=== PATIENT | male | born 1950 | race Caucasian/White ===

== ENCOUNTER 2018-06-25 15:18 | Observation (INO) ==
[2018-06-25] MEDS ORDERED: Sod Chloride 0.9% Inj 1,000 ML IV.SIG ONE (16:07)
--- NOTE | 2018-06-25 16:34 | XR ---
EXAM DATE: 06/25/2018 4:31 PM EDT AGE/SEX: 67 years / Male INDICATIONS: . Chest pain. Patient states dizziness with heart palpitations. CLINICAL DATA: This is the patient's initial encounter. Patient reports that signs and symptoms have been present for 3 days and indicates a pain score of 2/10. MEDICAL/SURGICAL HISTORY: None. None. COMPARISON: [facility], XR CHEST PA AND LAT, 02/23/2016. . FINDINGS: PA and lateral views of the chest demonstrate the lungs to be symmetrically aerated without evidence of mass, infiltrate or effusion. The cardiomediastinal contours are unremarkable. Osseous structures are intact. CONCLUSION: Negative for an acute process Electronically signed by: Jose E Roman MD 06/25/2018 4:32 PM EDT
[2018-06-25 17:28] LABS: Anion Gap 9 meq/L (5-15); Blood Urea Nitrogen 17 mg/dL (7-18); Calcium 8.5 mg/dL (8.5-10.1); Carbon Dioxide 28.2 meq/L (21.0-32.0); Chloride 104 meq/L (98-107); Glomerular Filtration Rate 64 mL/min (>89); Glucose,Random 81 mg/dL (74-106); Potassium 3.7 meq/L (3.5-5.1); Sodium 141 meq/L (136-145)
[2018-06-25 17:35] LABS: Baso % (Auto) 0.6 % (0.0-2.0); Eos # (Auto) 0.1 th/mm3 (0.0-0.4); Eos % (Auto) 1.3 % (0.0-4.0); Hemoglobin 13.7 gm/dL (13.0-17.0); Lymph # (Auto) 1.1 th/mm3 (1.0-4.8); Lymph % (Auto) 17.2 % (9.0-44.0); Mean Corpuscular HGB Conc 34.2 % (32.0-36.0); Mean Corpuscular Hemoglobin 30.2 pg (27.0-34.0); Mean Corpuscular Volume 88.4 fL (80.0-100.0); Mean Platelet Volume 7.3 fL (7.0-11.0); Mono # (Auto) 0.7 th/mm3 (0.0-0.9); Mono % (Auto) 11.4 % (0.0-8.0); Neut # (Auto) 4.4 th/mm3 (1.8-7.7); Neut % (Auto) 69.5 % (16.0-70.0); Platelet Count 285 th/mm3 (150-450); Red Blood Count 4.53 mil/mm3 (4.50-5.90); Red Cell Distribution Width 13.7 % (11.6-17.2); White Blood Count 6.4 th/mm3 (4.0-11.0)
--- NOTE | 2018-06-25 17:43 | ED ---
HPI General Chief Complaint: Dizziness Stated Complaint: Dizziness/light headed/heart skipping beats Time Seen by Provider: 06/25/18 15:55 Source: patient Mode of arrival: ambulatory Limitations: no limitations History of Present Illness HPI Narrative: Patient is a 67-year-old male, past medical history significant for hypertension, who presents with complaint of chest pain that is consistent of a warm sensation across most of his chest associated with lightheadedness particularly when standing. This does not occur when he is lying down. No shortness of breath, nausea, vomiting. He states that often wondered occurs he takes his pulse and notes himself to be missing several beats. No cough, congestion, fever, chills. complaint: lightheadedness Onset (ago): minute(s) Timing: sudden onset Description: lightheadedness History of similar episodes: Yes History of trauma: No Severity: moderate Exacerbating factors: other Related Data Allergies Allergy/AdvReac Type Severity Reaction Status Date / Time No Known Allergies Allergy Unverified 06/25/18 16:07 Review of Systems ROS: all other systems reviewed are negative [facility] Social History Social History Substance History: Active Abuse Second Hand Smoke Exposure: Yes Smoking Status: Current every day smoker Tobacco Type: Cigarettes How Often Do You Have a Drink Containing Alcohol: 2 to 4 times a month Recent Travel in [facility] within the Last 8 Weeks: Yes Recent Out of Country Travel within the Last 8 Weeks: No Exam Narrative Exam Narrative: GENERAL: Well-appearing male in no acute distress SKIN: Focused skin assessment warm/dry. No rashes. HEAD: Atraumatic. Normocephalic. EYES: Pupils equal and round. No scleral icterus. No injection or drainage. ENT: No nasal bleeding or discharge. Mucous membranes pink and moist. NECK: Trachea midline. No JVD. CARDIOVASCULAR: Regular rate and rhythm. No murmur appreciated. Intact and equal peripheral pulses. RESPIRATORY: No accessory muscle use. Clear to auscultation. Breath sounds equal bilaterally. GASTROINTESTINAL: Abdomen soft, non-tender, nondistended. Hepatic and splenic margins not palpable. MUSCULOSKELETAL: No obvious deformities. No clubbing. No cyanosis. No edema. NEUROLOGICAL: Awake and alert. No obvious cranial nerve deficits. Motor grossly within normal limits. Normal speech. PSYCHIATRIC: Appropriate mood and affect; insight and judgment normal. Course Initial Documented Vital Signs Temperature 97.3 F L 06/25/18 15:21 Pulse Rate 73 06/25/18 15:21 Respiratory Rate 17 06/25/18 15:21 Blood Pressure 142/65 H 06/25/18 15:21 Pulse Oximetry 97 06/25/18 15:21 Last Documented Vital Signs Temperature 97.3 F L 06/25/18 15:21 Pulse Rate 62 06/25/18 17:44 Respiratory Rate 18 06/25/18 17:44 Blood Pressure 145/71 H 06/25/18 17:44 Pulse Oximetry 98 06/25/18 17:44 Medical Decision Making MDM Narrative Medical decision making narrative: Patient is a 67-year-old male who presents with complaint of intermittent chest pain with dizziness and palpitations. EKG shows normal sinus rhythm without ischemic changes. Chest x-ray is unremarkable. Labs including troponin and TSH unremarkable. He has been placed in the chest pain center to remain on a monitor, and have serial EKGs with troponins in addition to a likely stress test. Patient was relieved upon hearing this and agreed. Medical Screen Exam Complete: Yes Emergency Medical Condition: Yes Differential Diagnosis Differential Diagnosis: Differential diagnosis includes but is not limited to acute coronary syndrome, electrolyte abnormality, symptomatic anemia, orthostatic hypotension. Medical Records Medical records reviewed: Yes I reviewed the patient's medical records. Lab Data Lab results reviewed: Yes I reviewed the patient's lab results. Lab results narrative: Unremarkable. Result diagrams: 06/25/18 16:40 06/25/18 16:40 Lab Results 06/25/18 06/25/18 Range/Units 16:40 16:40 WBC 6.4 (4.0-11.0) th/mm3 RBC 4.53 (4.50-5.90) mil/mm3 Hgb 13.7 (13.0-17.0) gm/dL Hct 40.0 (39.0-51.0) % MCV 88.4 (80.0-100.0) fL MCH 30.2 (27.0-34.0) pg MCHC 34.2 (32.0-36.0) % RDW 13.7 (11.6-17.2) % Plt Count 285 (150-450) th/mm3 MPV 7.3 (7.0-11.0) fL Neut % (Auto) 69.5 (16.0-70.0) % Lymph % (Auto) 17.2 (9.0-44.0) % [place] % (Auto) 11.4 H (0.0-8.0) % Eos % (Auto) 1.3 (0.0-4.0) % Baso % (Auto) 0.6 (0.0-2.0) % Neut # (Auto) 4.4 (1.8-7.7) th/mm3 Lymph # (Auto) 1.1 (1.0-4.8) th/mm3 [place] # (Auto) 0.7 (0.0-0.9) th/mm3 Eos # (Auto) 0.1 (0.0-0.4) th/mm3 Baso # (Auto) 0.0 (0.0-0.2) th/mm3 WBC Differential . Differential Comment Auto diff final Sodium 141 (136-145) meq/L Potassium 3.7 (3.5-5.1) meq/L Chloride 104 (98-107) meq/L Carbon Dioxide 28.2 (21.0-32.0) meq/L Anion Gap 9 (5-15) meq/L BUN 17 (7-18) mg/dL Creatinine 1.14 (0.60-1.30) mg/dL Estimated GFR 64 L (>89) mL/min Random Glucose 81 (74-106) mg/dL Calcium 8.5 (8.5-10.1) mg/dL Troponin I Less than 0.02 L (0.02-0.05) ng/mL TSH 1.360 (0.358-3.740) uIU/mL Imaging Data Attestation: I personally reviewed and interpreted this imaging study as follows : My impression: No acute cardiopulmonary process. Radiologist's impression: Chest X-Ray 06/25/18 16:07 CONCLUSION: Negative for an acute process ECG Data EKG Prior to Arrival: No Attestation: I personally reviewed and interpreted this ECG as follows: (EKG shows sinus bradycardia at a rate of [address] or T-wave changes.) Discharge Plan Discharge Disposition Patient Disposition: 30 Still Patient Discharge Condition Condition: Stable Discharge Details Diagnosis: Chest pain, rule out acute myocardial infarction Physicians Team ED Provider: Shobha Wallace Primary Care Provider: Zenon Villareal Discharge Interventions Interventions: Vital Signs Last Done: 06/25/18 17:44 Status ED Status: With Doctor
[2018-06-25 19:55] LABS: Creatine Kinase 67 U/L (39-308)
[2018-06-26 02:24] LABS: Creatine Kinase 66 U/L (39-308)
[2018-06-26] MEDS ORDERED: Lisinopril 10 MG Tablet PO SCH ×2 (09:45→21:00)
[2018-06-26] MEDS ORDERED: Pantoprazole Sodium 20 MG DR Tablet PO SCH (11:15)
[2018-06-26 11:50] VITALS: BP 159/75; PULSE 59; RESP 22; TEMP 97.5; O2SAT 96
--- NOTE | 2018-06-26 12:16 | P.HPCA ---
History of Present Illness Primary Care Physician: Zenon Villareal Chief Complaint: Chest pain and dizziness History of Present Illness: This is a 67-year-old male that presents to ED with a complaint of chest pain and dizziness that has been intermittent for a week. Lasts about an hour. Described as a warm sensation of discomfort. Not exertional. Denies shortness of breath nausea or diaphoresis. One point he felt like he was about to pass out. That occurred a few weeks ago. He attributed that to being dehydrated and taking Flomax so he stopped taking Flomax. Discomfort does not radiate. Denies history of CAD. But there is family history of CAD with their his father having MS at age 47. Patient also smokes. Patient smokes about one half pack a series daily. Medical history of hypertension, BPH, and tobacco abuse. States that his father had an MS at age 47. - Diagnosis (1) Chest pain (2) Hypertension (3) Tobacco abuse Review of Systems General: Patient denies fevers, chills, and recent travel. HEENT: Patient denies headache, sore throat, difficulty swallowing. Cardiovascular: Has the chest discomfort as mentioned above. Denies sensation of heart beating rapidly or irregularly. Had a near syncopal event a few weeks ago. Denies diaphoresis. Respiratory: Denies shortness of breath or inspirational chest discomfort. Denies coughing wheezing or hemoptysis. GI: Patient denies nausea, vomiting, diarrhea, abdominal pain, bloody stools. Musculoskeletal: Patient denies joint pain or edema. Denies calf pain or edema. Neurovascular: Has felt dizzy. Patient denies numbness, tingling, weakness in extremities. Denies headache. Endocrine: Denies polyuria and polydipsia. Hematologic: Denies easy bruising. Skin: Denies rash or itching. PMFSH - History History Provided By: Patient - Tobacco History Second Hand Smoke Exposure: Yes Tobacco Use In Past 30 Days: Yes Smoking Status: Heavy tobacco smoker Tobacco Type: Cigarettes - Alcohol History How Often Do You Have a Drink Containing Alcohol: 2 to 4 times a month - Substance Use History Substance History: Past History - Substance Use Type Crack/Cocaine Status: Active Route Used: Inhalation - Travel History Recent Travel in the [place] Within the Last 8 Weeks: Yes Recent Travel Out of the Country Within the Last 8 Weeks: No - Immunization History Tetanus Immunization: Unsure Hx Influenza Vaccine This Season: No Medications and Allergies Active Medications: Active Medications Clonidine HCl (Catapres) 0.1 mg PO Q6H PRN PRN Reason: SBP >165 OR DBP > 110 Last Admin: 06/26/18 09:36 Dose: 0.1 mg Hydrochlorothiazide (Microzide) 12.5 mg PO DAILY [facility] Last Admin: 06/26/18 11:15 Dose: 12.5 mg Lisinopril (Prinivil) 10 mg PO [facility] Lisinopril (Prinivil) 10 mg PO DAILY [facility] Last Admin: 06/26/18 10:10 Dose: 10 mg Pantoprazole Sodium (Protonix) 20 mg PO DAILY [facility] Last Admin: 06/26/18 11:14 Dose: 20 mg Sodium Chloride (Ns Flush) 2 ml IV.FLUSH PRN PRN PRN Reason: FLUSH AFTER USING IV ACCESS Last Admin: 06/25/18 17:42 Dose: 2 ml Sodium Chloride (Ns Flush) 2 ml IV.FLUSH BID [facility] Last Admin: 06/26/18 11:15 Dose: 2 ml Sodium Chloride (Ns Flush) 2 ml IV.FLUSH PRN PRN PRN Reason: FLUSH AFTER USING IV ACCESS Allergies Allergy/AdvReac Type Severity Reaction Status Date / Time No Known Allergies Allergy Verified 06/25/18 19:25 Home Medications Medication Instructions Recorded Confirmed Type doxazosin 1 mg PO DAILY 06/25/18 06/25/18 History lisinopril 10 mg PO HS 06/25/18 06/25/18 History lisinopril-hydrochlorothiazide 1 tab PO DAILY 06/25/18 06/25/18 History naproxen sodium [Aleve] 220 mg PO DAILY 06/25/18 06/25/18 History omeprazole 20 mg PO DAILY 06/25/18 06/25/18 History sildenafil 25 mg PO DAILY PRN 06/25/18 06/25/18 History Exam Vital signs: Vital Signs 06/25/18 15:21 06/25/18 16:43 06/25/18 17:44 Temperature 97.3 F L Pulse Rate 73 62 62 Respiratory Rate 17 16 18 Blood Pressure 142/65 H 141/37 H 145/71 H Pulse Oximetry 97 98 98 06/25/18 18:03 06/25/18 20:00 06/26/18 00:10 Temperature 98.2 F Pulse Rate 56 L 65 59 L Respiratory Rate 18 23 Blood Pressure 171/83 H 163/71 H Pulse Oximetry 98 06/26/18 04:00 06/26/18 08:00 06/26/18 09:59 Temperature 97.9 F 98.0 F Pulse Rate 66 56 L Respiratory Rate 14 16 Blood Pressure 154/70 H 196/99 H 184/88 H Pulse Oximetry 96 98 06/26/18 11:47 Temperature 97.5 F L Pulse Rate 59 L Respiratory Rate 22 Blood Pressure 159/75 H Pulse Oximetry 96 Intake & Output 06/25/18 06/26/18 06/26/18 18:59 06:59 18:59 Intake Total 1000 / 1000 Balance 1000 / 1000 Weight 63.503 kg Intake: IV 1000 / 1000 NS Inj 1,000 ML @ Wide Open IV. 1000 / 1000 SIG BOLUS ONE Rx#:[id number] Other: Date of Last Bowel Movement 06/25/18 Narrative: GENERAL: This is a well-nourished, well-developed patient, in no apparent distress. Patient speaks in clear complete sentences. Patient is pleasant. HEENT: Head is atraumatic and normocephalic. Neck is supple without lymphadenopathy and trachea is midline. No JVD or carotid bruits. CARDIOVASCULAR: Regular rate and rhythm without murmurs, gallops, or rubs. RESPIRATORY: Clear to auscultation. Breath sounds equal bilaterally. No wheezes , rales, or rhonchi. Chest wall is nontender. No use of accessory muscles. GASTROINTESTINAL: Abdomen is nontender, nondistended. Abdomen soft. No obvious pulsatile mass or bruit. No CVA tenderness. Strong femoral pulses bilaterally. Normal bowel sounds in all quadrants. MUSCULOSKELETAL: Patient is moving upper and lower extremities freely. No calf tenderness or edema, no Homans sign. Strong pulses in upper and lower extremities. NEUROLOGICAL: Patient is alert and oriented. Cranial nerves 2-12 are grossly intact. No focal deficits and speech is clear. SKIN: No rash and turgor is normal. Results 06/25/18 16:40 06/25/18 16:40 Cardiac Enzymes 06/25/18 06/25/18 06/26/18 Range/Units 16:40 19:06 01:30 Troponin I Less than 0.02 L Less than 0.02 L Less than 0.02 L (0.02-0.05) ng/mL CBC 06/25/18 Range/Units 16:40 WBC 6.4 (4.0-11.0) th/mm3 RBC 4.53 (4.50-5.90) mil/mm3 Hgb 13.7 (13.0-17.0) gm/dL Hct 40.0 (39.0-51.0) % Plt Count 285 (150-450) th/mm3 Neut # (Auto) 4.4 (1.8-7.7) th/mm3 Lymph # (Auto) 1.1 (1.0-4.8) th/mm3 [place] # (Auto) 0.7 (0.0-0.9) th/mm3 Eos # (Auto) 0.1 (0.0-0.4) th/mm3 Baso # (Auto) 0.0 (0.0-0.2) th/mm3 Comprehensive Metabolic Panel 06/25/18 Range/Units 16:40 Sodium 141 (136-145) meq/L Potassium 3.7 (3.5-5.1) meq/L Chloride 104 (98-107) meq/L Carbon Dioxide 28.2 (21.0-32.0) meq/L BUN 17 (7-18) mg/dL Creatinine 1.14 (0.60-1.30) mg/dL Calcium 8.5 (8.5-10.1) mg/dL Intake and Output 06/25/18 06/26/18 06/26/18 22:59 06:59 14:59 Intake Total 1000 / 1000 Balance 1000 / 1000 Intake: IV 1000 / 1000 NS Inj 1,000 ML @ Wide Open IV. 1000 / 1000 SIG BOLUS ONE Rx#:[id number] Other: Date of Last Bowel Movement 06/25/18 Weight 63.503 kg EKG interpretations - EKG EKG shows: bradycardia (EKGs a sinus bradycardia with nonspecific inferior lateral T changes. No significant ST segment depressions or elevations.) Caprini VTE Risk Assessment Caprini VTE Risk Assessment: Moderate/High Risk (score >= 2) Caprini Risk Assessment Model: Point Value = 1 Point Value = 2 Point Value = 3 Point Value = 5 Age 41-60 Minor surgery BMI > 25 kg/m2 Swollen legs Varicose veins or History of unexplained or recurrent spontaneous Oral contraceptives or hormone replacement Sepsis (< 1 month) Serious lung disease, including pneumonia (< 1 month) Abnormal pulmonary function Acute myocardial infarction Congestive heart failure (< 1 month) History of inflammatory bowel disease Medical patient at bed rest Age 61-74 Arthroscopic surgery Major open surgery (> 45 min) Laparoscopic surgery (> 45 min) Malignancy Confined to bed (> 72 hours) Immobilizing plaster cast Central venous access Age >= 75 History of VTE Family history of VTE Factor V Leiden Prothrombin [id number] Lupus anticoagulant Anticardiolipin antibodies Elevated serum homocysteine Heparin-induced thrombocytopenia Other congenital or acquired thrombophilia Stroke (< 1 month) Elective arthroplasty Hip, pelvis, or leg fracture Acute spinal cord injury (< 1 month) Prophylaxis Regimen: Total Risk Factor Score Risk Level Prophylaxis Regimen 0-1 Low Early ambulation 2 Moderate Order ONE of the following: *Sequential Compression Device (SCD) *Heparin 5000 units SQ BID 3-4 Higher Order ONE of the following medications: *Heparin 5000 units SQ TID *Enoxaparin/Lovenox 40 mg SQ daily (WT < 150 kg, CrCl > 30 mL/min) *Enoxaparin/Lovenox 30 mg SQ daily (WT < 150 kg, CrCl > 10-29 mL/min) *Enoxaparin/Lovenox 30 mg SQ BID (WT < 150 kg, CrCl > 30 mL/min) AND/OR *Sequential Compression Device (SCD) 5 or more Highest Order ONE of the following medications: *Heparin 5000 units SQ TID (Preferred with Epidurals) *Enoxaparin/Lovenox 40 mg SQ daily (WT < 150 kg, CrCl > 30 mL/min) *Enoxaparin/Lovenox 30 mg SQ daily (WT < 150 kg, CrCl > 10-29 mL/min) *Enoxaparin/Lovenox 30 mg SQ BID (WT < 150 kg, CrCl > 30 mL/min) AND *Sequential Compression Device (SCD) Assessment and Plan - Assessment (1) Chest pain Code(s): R07.9 - Chest pain, unspecified Status: Acute (2) Hypertension Code(s): I10 - Essential (primary) hypertension Status: Acute (3) Tobacco abuse Code(s): Z72.0 - Tobacco use Status: Acute - Plan * Chest pain: Patient had serial cardiac enzymes and EKGs for ruling out purposes. He has been seen by Dr. Lewis of cardiology in the chest pain center. He attempted a Karthikeyan protocol ETT but was able to complete the study secondary to chronic hip pain. Patient will have a Lexiscan. Patient will be discharged home if his stress test is nonischemic with instructions to follow- up with PCP. Return to ED for interval issues. He had stopped taking Flomax and she discussed this with his PCP for alternative BPH treatment. Return to ED for interval issues. * Hypertension: Continue medication. * Tobacco abuse: Patient counseled on importance of smoking cessation. Patient stable at this time. He is agreeable to this plan. H&P: Quality - VTE Deep Vein Thrombosis/Pulmonary Embolism Present on Admission: No
[2018-06-26] MEDS ORDERED: Regadenoson Inj 0.4 MG/5 ML Syringe IV.PUSH ONE (13:36)
--- NOTE | 2018-06-26 15:02 | NM ---
EXAM DATE: 06/26/2018 2:42 PM EDT AGE/SEX: 67 years / Male INDICATIONS:Angina. . Chest pain with lightheadedness. CLINICAL DATA: This is the patient's initial encounter. Patient reports that signs and symptoms have been present for 1 day and indicates a pain score of 3/10. MEDICAL/SURGICAL HISTORY: Hypertension. None. COMPARISON: No prior exams available for comparison. DOSE: 8.6 mCi Tc 99m Myoview at rest 27.2 mCi [id number] at stress 0.4 mg Lexiscan STRESS SYMPTOMS: Asymptomatic. EJECTION FRACTION: 46 % TECHNIQUE: The patient underwent pharmacologic stress with infusion of prescribed dose. Continuous ECG tracing was monitored during stress. Gated SPECT imaging was performed after stress and conventi onal SPECT imaging was performed at rest. The examination was performed on a SPECT/CT scanner, both attenuation and non-corrected datasets were reviewed. FINDINGS: Distribution: The maximum perfused segment at stress is in the anterolateral wall. Perfusion Study: The pattern of perfusion at stress is within normal limits. Gated Study: There are intact wall motion and wall thickening without hypokinetic or dyskinetic segm ents. The ejection fraction is calculated at 46%. RISK CATEGORY: Intermediate (1-3 % Annual Mortality Rate) CONCLUSION: Mildly decreased ejection fraction of 46%. No reversible ischemic segments are identified. Electronically signed by: Usman Nix MD 06/26/2018 3:01 PM EDT
--- NOTE | 2018-06-26 16:32 | TR ---
Date Performed: 06/26/2018 Time Performed: 13:33:02 DOCTOR: Nicole Lewis DRUG LIST: CLINICAL HISTORY: REASON FOR TEST: REASON FOR ENDING: OBSERVATION: CONCLUSION: Lexiscan stress test was performed under standard four minute protocol. Radionuclid e was injected one minute prior to ending the test. No electrocardiographic abormalities were present to suggest ischemia. Nuclear imaging and interpretation are pending. COMMENTS: no ischemia
--- NOTE | 2018-06-26 16:38 | TR ---
Date Performed: 06/26/2018 Time Performed: 10:33:26 DOCTOR: Nicole Lewis DRUG LIST: CLINICAL HISTORY: REASON FOR TEST: REASON FOR ENDING: OBSERVATION: CONCLUSION: ATTEMPTED BIRD PROTOCOL STOPPED SECONDARY TO CHRONIC HIP PAIN. NO CP OR SOB, WILL PLAN LEXISCAN.Maximum HR=92 % Max HR Achieved=61.0% Maximum BS=836/84 Total Exercise Time=5:17 COMMENTS: suboptimal study
--- NOTE | 2018-06-26 20:33 | ECG ---
Date Performed: 06/25/2018 Time Performed: 23:13:56 PTAGE: 67 years EKG: SINUS BRADYCARDIA LOW QRS VOLTAGE IN PRECORDIAL LEADS BORDERLINE ECG Since PREVIOUS TRACING , no significant change noted PREVIOUS TRACIN06/25/2018 20.31 DOCTOR: Nicole Lewis Interpretating Date/Time 06/26/2018 20:31:58
--- NOTE | 2018-06-26 20:34 | ECG ---
Date Performed: 06/25/2018 Time Performed: 20:31:39 PTAGE: 67 years EKG: SINUS BRADYCARDIA BORDERLINE ECG Since PREVIOUS TRACING , no significant change noted PREVIOUS TRACIN06/25/2018 19.21 DOCTOR: Nicole Lewis Interpretating Date/Time 06/26/2018 20:33:07
--- NOTE | 2018-06-26 20:35 | ECG ---
Date Performed: 06/25/2018 Time Performed: 17:35:43 PTAGE: 67 years EKG: SINUS BRADYCARDIA BORDERLINE ECG NO PREVIOUS TRACING DOCTOR: Nicole Lewis Interpretating Date/Time 06/26/2018 20:34:19
--- NOTE | 2018-06-26 20:35 | ECG ---
Date Performed: 06/25/2018 Time Performed: 19:21:46 PTAGE: 67 years EKG: SINUS BRADYCARDIA BORDERLINE ECG Since PREVIOUS TRACING , no significant change noted PREVIOUS TRACIN06/25/2018 17.35 DOCTOR: Nicole Lewis Interpretating Date/Time 06/26/2018 20:34:04
== END 2018-06-26 16:04 | disposition home or self-care (01) ==
LOC: NEDA 15:18 → NEPE 15:18 → NEPGCP 19:45
PROVIDERS: ADMIT Internal Medicine Cardiovascular Disease; ATTEND Internal Medicine Cardiovascular Disease